=== PATIENT | female | born 1950 | race Caucasian/White ===

== ENCOUNTER → 2019-05-11 | Outpatient (CLI) | payer MEDICARE, OTHER ==
[~2019-05-11] VITALS: Ht 165.1 cm; Wt 73.2 kg
[2019-05-11] VITALS (12 sets, daily range): BP systolic 117–166; BP diastolic 59–81; PULSE 60–75
[~2019-05-11] MED LIST: AIDE PO; ASPIRIN 81M81 MG/TA2 PO; B-12 500 MCG PO; CALCIUM 600-D 61 TAB PO; COLACE 100100 MG/CAP PO; CRESTOR20 MG PO; HCTZ 25MG TAB25 MG PO; K-DUR20 MEQ PO; LYRICA 50MG CAP50 MG PO; NATURAL E400 IU PO; NOVLOG SQ; OCUVITE1 TA1 PO; OMEGA-3 1000 MG1 CAP PO; PAXIL 20MG20 MG PO; PRINIVIL20 MG PO; THE MEDICINE S200 M2 PO; VITAMIN B122500 MCG SL; VITAMIN D 1001000 IU PO; VITAMIN E 400 U4001 PO
--- NOTE | 2019-05-11 10:12 | NUR ---
PT TAKEN BY WHEELCHAIR TO CT ROOM. ASSISTED ON CT TABLE. MONITORING EQUIPMENT PLACED ON PT. IMAGES TAKEN AND SENT
--- NOTE | 2019-05-11 10:22 | NUR ---
PT GIVEN 1 MG VERSED AND 25 MCG FENTANYL AT 1020
--- NOTE | 2019-05-11 10:37 | NUR ---
PROCEDURE COMPLETED. PRESSURE HELD FOR [address] [facility].
--- NOTE | 2019-05-11 13:46 | NUR ---
PT TAKEN TO POV IN WHEELCHAIR. ASSISTED INTO VEHICLE, SPOUSE DRIVING
== END ==
LOC: COL.RAD 08:00
DX: N28.89 Other specified disorders of kidney and ureter (principal)